=== PATIENT | male | born 1970 | race Caucasian/White ===

== ENCOUNTER 2019-06-09 20:50 | Emergency (ER) | payer OTHER ==
[~2019-06-09] VITALS: Ht 190.5 cm; Wt 109.5 kg
[2019-06-09 21:01] VITALS: Ht 190.5 cm; Wt 109.5 kg
[2019-06-09 21:32] LABS: BASOPHILS 0.5 % (0-2); HEMATOCRIT 49.5 % (42.0-54.0); HEMOGLOBIN 17.4 g/dL (13.5-17.5); IMMATURE GRANULOCYTES 0.3 % (0-5); LYMPHOCYTES 29.9 % (15-50); MCH 29.9 pg (26.0-34.0); MCHC 35.2 g/dL (31.0-37.0); MCV 85.2 fL (80.0-100.0); MEAN PLATELET VOLUME 9.3 fL (7.4-10.4); MONOCYTES 6.1 % (2-11); NEUTROPHILS 60.2 % (40-80); PLATELET COUNT 267 10x3/uL (130-400); RBC 5.81 10x6/uL (4.20-6.10); RDW 13.4 % (11.5-14.5)
[2019-06-09 21:52] LABS: APTT 26.7 SECONDS (22.8-39.4); PROTIME 13.1 SECONDS (11.6-15.0)
[2019-06-09 21:53] LABS: CALC OSMOLALITY 283 mosm/kg (275-300); CALCIUM 9.2 mg/dL (8.5-10.1); CARBON DIOXIDE 29.5 mmol/L (21.0-32.0); CHLORIDE - SERUM 105 mmol/L (98-107); GLUCOSE 102 mg/dL (74-106); POTASSIUM - SERUM 4.2 mmol/L (3.5-5.1); SODIUM 142 mmol/L (136-145); UREA NITROGEN 14 mg/dL (7-18); eGFR NON AFRICAN AMERICAN 85 mL/min (90-120)
[2019-06-09 22:12] LABS: ALBUMIN 4.1 g/dL (3.4-5.0); ALKALINE PHOSPHATASE 70 U/L (30-120); ALT (SGPT) 36 U/L (10-68); BILIRUBIN - TOTAL 0.52 mg/dL (0.2-1.3); CKMB 0.2 U/L (0.0-3.6); CREATINE KINASE 66 UL (21-232); MAGNESIUM - SERUM 2.2 mg/dL (1.8-2.4)
[2019-06-09 22:20] LABS: TROPONIN-I < 0.017 ng/mL (0.000-0.060)
[2019-06-09 23:46] VITALS: BP 150/91
== END 2019-06-09 23:46 | disposition home or self-care (01) ==
LOC: D.ER 20:50
PROVIDERS: Family Medicine
DX: R00.0 Tachycardia, unspecified (principal)

== ENCOUNTER → 2019-07-16 10:36 | Outpatient (CLI) | payer OTHER ==
[2019-06-09 21:01] VITALS: BMI 30.1
== END | disposition home or self-care (01) ==
LOC: D.HCCECHO 07-13 09:00
PROVIDERS: ATTEND Internal Medicine Cardiovascular Disease
DX: I47.1 Supraventricular tachycardia (principal)